=== PATIENT | male | born 1975 | race Hispanic/Latino ===

== ENCOUNTER 2017-07-11 18:02 | Emergency (ER) | payer SELFPAY ==
[~2017-07-11] VITALS: Ht 185.4 cm; Wt 102.1 kg
[2017-07-11] MEDS ORDERED: IBUPROFEN 600 MG TAB PO STA (18:42)
[2017-07-11] MEDS ORDERED: IBUPROFEN 400 MG TAB ONE (18:48)
[2017-07-11 20:01] LABS: STREPTOCOCCUS GRP A ANTIGEN NEGATIVE (NEGATIVE)
[2017-07-11 20:14] LABS: INFLUENZAE A&B ANTIGEN (RAPID) POSITIVE FLU A (NEGATIVE)
== END 2017-07-11 20:28 | disposition home or self-care (01) ==
LOC: ER 18:02
DX: R50.9 Fever, unspecified (principal); R05 Cough; M79.1 Myalgia; B34.9 Viral infection, unspecified
CPT/HCPCS: 83518; 87070; 87400; 99283